=== PATIENT | female | born 1975 | race Caucasian/White ===

== ENCOUNTER 2025-03-05 12:46 | Emergency (ER) | payer SELFPAY ==
[2025-03-05 12:48] VITALS: BP 147/65; PULSE 65; RESP 14; TEMP 36.2; O2SAT 100; BMI 18.1
[2025-03-05 13:31] LABS: Hematocrit 41.1 % (37-47); Hemoglobin 13.1 g/dL (12.0-15.0); Immature Granulocytes Count 0.020 X10^3/uL (0.0-0.0); Mean Corp Hgb Conc 31.9 g/dL (32-36); Mean Corpuscular Volume 90.7 fL (81-99); Mean Platelet Vol. 9.9 fl (6.2-12.0); NRBC Flagged by Analyzer 0 % (0-5); Platelet Count 371 K/mm3 (150-450); RBC Distribution Width CV 13.1 % (11.6-14.6); RBC Distribution Width SD 43.5 fl (35.1-43.9); Red Blood Count 4.53 M/mm3 (4.2-5.4); White Blood Count 7.9 K/mm3 (4.4-11.0)
[2025-03-05 13:39] LABS: Barbiturate Urine NEGATIVE (< 200 ng/mL); Benzodiazepine Urine NEGATIVE (< 200 ng/mL); PCP Urine NEGATIVE (< 25 ng/mL); THC Urine NEGATIVE (< 50 ng/mL)
[2025-03-05 14:00] LABS: Anion Gap 11 (5-15); BUN 13 mg/dL (4-19); BUN/Creat Ratio 26.3 RATIO (10-20); Calcium,Total 9.4 mg/dL (7.6-11.0); Carbon Dioxide 25.3 mmol/L (21.0-32.0); Chloride 102 mmol/L (98-108); Estimated Creatinine Clearance 111.91 ml/min (50-250); Glucose 103 mg/dL (70-99); Potassium 4.3 mmol/L (3.3-5.1)
[2025-03-05 14:05] LABS: Alcohol, Blood (Medical)-Serum < 10.1 mg/dL (<=10.0)
[2025-03-05 14:08] LABS: Internal QC Validated? YES +Cl - CLEAR BKGD; Pregnancy, Serum, hCG Quali. NEGATIVE Negative; Record Kit Lot#, Serum Preg. 980607
[2025-03-05 14:40] LABS: Mucous, Urine 0 SEEN /hpf (<or=2+); Red Blood Cells-Urine 0 SEEN /hpf (0-5)
[2025-03-05 14:51] LABS: Color, Urine Yellow (Yellow); Glucose, Dipstick Normal (Normal); Ketone-Dipstick Negative (Negative); Leukocyte Esterase-Dipstick 500 /ul (Negative); Nitrite-Dipstick Negative (Negative); Occult Blood-Urine 10 /ul (Negative); Protein-Dipstick Negative (Negative); Specific Gravity, Urine 1.010 (1.002-1.030); Urine Bilirubin Dipstick Negative (Negative)
[2025-03-05 14:52] LABS: Squamous Epithelial Cells - UA 10-25 SEEN /hpf (5-10)
--- NOTE | 2025-03-05 15:35 | EDS_ITS ---
HPI HPI - Psych History of Present Illness Chief Complaint: Mental Health Informant: patient and PCP Narrative Narrative: 14-year-old female is brought to the emergency room. Patient tells me that 5 days ago she came to the area to visit family from [place]. She states that she has been feeling lethargic and feels that everything is very hazy here in [place]. She drink the tap water which she is not supposed to drink because she does not like the taste of it. It is unclear why she told me that information. Apparently she is supposed to be on Lamictal for personal reasons. She has not been on that. She states that she with her family went to the [facility] to get started on her medications. She was then brought to the emergency department under a pink slip. The pink slip states Sister brings client into office reports confused off of medications for months. Decline in function unable to properly use utensils or go to bathroom correctly reports history of schizoaffective-bipolar type and off antipsychotic over 6 months. She denies suicidal homicidal ideation but sister reports threats to kill people that took her children. Will decline in mental and physical health need evaluated and higher level of care Patient states she is here just to give a urine specimen then was to go back and get started on her medications. PFSH PFS Medical History Sarcoma of bone Bipolar depression Depression Medical History no medical history Allergy/AdvReac Type Severity Reaction Status Date / Time No Known Allergies Allergy Verified 03/05/25 12:47 Family History no significant family his Surgical History H/O thumb surgery Surgical History no surgical history Social History Smoking Status: Never smoker ROS ROS ED ROS Narrative Generalized fatigue Constitutional Constitutional ED: Denies chills or weight loss Eyes Eyes: Denies change in vision or diplopia ENT ENT ED: Denies ear pain, rhinorrhea or sore throat Cardiovascular Cardiovascular: Denies chest pain, orthopnea, palpitations or racing heartbeat Respiratory/Chest Respiratory/Chest: Denies cough, dyspnea or orthopnea Gastrointestinal Gastrointestinal: Denies abdominal pain, diarrhea, nausea or vomiting Genitourinary Genitourinary ED: Denies dysuria, hematuria or urinary frequency Musculoskeletal Musculoskeletal: Denies arthralgias or myalgias Integumentary Denies abscess or rash Neurologic Neurologic: Denies headache(s) or weakness Psychiatric Psychiatric: Denies anxiety, depression, suicidal ideation or suicidal thoughts Endocrine Endocrinology: Denies polydipsia, polyphagia or polyuria Allergic/Immunologic Allergic/Immunologic ED: Denies mouth swelling, tongue swelling or urticaria EXAM Physical Exam Const Vital Signs: 03/05/25 12:48 Temperature 97.2 F L Temperature Source Temporal Pulse Rate 65 Respiratory Rate 14 Blood Pressure 147/65 H Blood Pressure Mean 92 Pulse Ox 100 Positive well nourished and well developed General Appearance ED: well developed and NAD HEENT Reports normocephalic, head/scalp atraumatic and moist mucous membranes Eyes PERRL and EOMs intact bilaterally Neck no lymphadenopathy, supple and no JVD Resp normal respiratory effort and clear to auscultation bilaterally Cardio regular rate, regular rhythm and no murmurs GI normal to inspection, nondistended, normoactive bowel sounds and non-tender Palpation: soft Back/Spine no CVA tenderness and normal ROM Extremity normal to inspection General Extremety ED: Negative for edema General Extremity: Negative for edema Neuro oriented x3 and CN's II-XII intact bilaterally Sensorium / Orientation: alert Motor Exam: strength 5/5 throughout Psych mental status grossly normal Appearance: grossly normal Attitude: withdrawn, evasive and guarded Speech: slow Mood & Affect: Negative for depressed or tearful Thought Process: flight of ideas Skin no rashes or lesions noted and no wounds MDM MDM MDM Narrative Medical decision making narrative: Differential diagnosis includes schizoaffective disorder bipolar disorder UTI hypothyroidism dehydration Psychiatric screening labs were obtained through nursing protocol and were reviewed. I added on a TSH as well as a formal urine. All of these are not demonstrating an obvious cause to the patient's lethargy. Family dropped the patient off I been unable to speak with them yet. Then asked crisis to come and speak with the patient as she has have a pink slip. At the time of my examination however she is not suicidal or homicidal. History & Record Review Discussion w/independent historian: Patient and Other (Sharpes slip from Clary Roberson) Lab Data Attestation: I reviewed the patient's lab results. Labs: Laboratory Results - last 24 hr 03/05/25 03/05/25 03/05/25 13:00 13:25 14:30 WBC 7.9 RBC 4.53 Hgb 13.1 Hct 41.1 MCV 90.7 MCH 28.9 MCHC 31.9 L RDW Std Deviation 43.5 RDW Coeff of Ana 13.1 Plt Count 371 MPV 9.9 Immature Gran % (Auto) 0.300 Neut % (Auto) 67.0 Lymph % (Auto) 22.2 [place] % (Auto) 9.0 Eos % (Auto) 1.0 Baso % (Auto) 0.5 Absolute Neuts (auto) 5.3 Absolute Lymphs (auto) 1.75 Nucleated RBC % 0 Sodium 138 Potassium 4.3 Chloride 102 Carbon Dioxide 25.3 Anion Gap 11 BUN 13 Creatinine 0.50 L Estim Creat Clear Calc 111.91 Est GFR (MDRD) Non-Af 114 BUN/Creatinine Ratio 26.3 H Glucose 103 H Calcium 9.4 TSH 2.380 Serum , Qual NEGATIVE Urine Color Yellow Urine Clarity Clear Urine pH 7.0 Ur Specific Hope 1.010 Urine Protein Negative Urine Glucose (UA) Normal Urine Ketones Negative Urine Occult Blood 10 H Urine Nitrite Negative Urine Bilirubin Negative Urine Urobilinogen Normal Ur Leukocyte Esterase 500 H Urine RBC 0 SEEN Urine WBC 10-25 SEEN Ur Squamous Epith Cells 10-25 SEEN Urine Bacteria 0 SEEN Urine Mucus 0 SEEN Urine Opiates Screen NEGATIVE U Buprenorphine Qual NEGATIVE Ur Oxycodone Screen NEGATIVE Urine Methadone Screen NEGATIVE Urine Fentanyl Screen NEGATIVE Ur Barbiturates Screen NEGATIVE Ur Phencyclidine Scrn NEGATIVE Ur Amphetamines Screen NEGATIVE U Benzodiazepines Scrn NEGATIVE Urine Cocaine Screen NEGATIVE U Cannabinoids Screen NEGATIVE Ethyl Alcohol < 10.1 Management Discussion w/another healthcare provider: Behavioral health Discharge Plan Triage Chief Complaint: Mental Health ED Provider: Arvind De La Fuente Dx/Rx/DC Orders Clinical Impression: Lethargic, Bipolar disorder Primary Care Provider: Care Physician,No Primary Referrals: Care Physician,No Primary [Primary Care Provider, Medical] Print Language: Romanian
[2025-03-05 22:40] VITALS: BP 124/74; PULSE 78; RESP 16; O2SAT 99
[2025-03-06 06:00] VITALS: BP 121/83; PULSE 69; RESP 16; O2SAT 100
--- NOTE | 2025-03-06 12:01 | EKG12_ITS ---
Test Reason : Blood Pressure : */* mmHG Vent. Rate : 80 BPM Atrial Rate : 80 BPM P-R Int : 172 ms QRS Dur : 88 ms QT Int : 374 ms P-R-T Axes : 69 39 62 degrees QTcB Int : 431 ms Normal sinus rhythm with sinus arrhythmia Normal ECG Confirmed by GERMANIA IBANEZ, REAL ([id number]), editor newspaper ANGELICA ROSE ([id number]) on 03/08/2025 6:43:58 AM Referred By: Confirmed By: REAL SOLO MD
--- NOTE | 2025-03-06 12:10 | CM.ED ---
Social Work Date of referral: 06/06/24 Reason for referral: Patient requesting to speak with a secondary social studies teacher as [facility] is requiring an EKG which patient has been refusing. Referred by: ED nursing/patient request Welding Equipment Sales Representative met with patient and was able to successfully answer all of patient's questions to her satisfaction. Patient then provided verbal consent to the EKG. Welding Equipment Sales Representative let ED nurse/staff know. Patient denied any other needs/concerns at this time. Marlena Verdin, ELEPHANT TAMER, PLACEMENT OFFICER
[2025-03-06 14:00] VITALS: BP 142/71; PULSE 89; RESP 16; O2SAT 98
[2025-03-06] MEDS: Smz/Tmp Ds Tablet 1 TABLET PO (18:07)
--- NOTE | 2025-03-06 18:13 | ED.RN ---
lab called and needs more urine for culture
[2025-03-06 22:00] VITALS: BP 138/78; PULSE 78; RESP 16; TEMP 36.7; O2SAT 100
[2025-03-07 06:00] VITALS: BP 144/93; PULSE 66; RESP 14; O2SAT 100
--- NOTE | 2025-03-07 11:44 | CM.ED ---
Social Work Pot Feeder received a call from patient's sister, Yris Alberts who shared the following history: Patient has 3 children, (Mrs. Alberts guessed at the ages) 15 year-old daughter Mercedes Pineda, 14 year-old son Yemi Pineda and 10 year-old son Milo Pineda, all who were all removed from the care of patient in [place] by [facility] within this last year. Reason is unknown and it is also unknown if the children are in foster care or placed with their father, Avrind, however [facility] was said to be still involved. Children were removed close to the [place] or [place] area of [place]. Mrs. Alberts stated patient went homeless trying to walk the streets looking for her children and Mrs. Alberts's son was able to locate patient after a missing person's report was filed and went to [place] and brought patient back to [place]. Mrs. Alberts stated patient doesn't shower, doesn't use utensils and isn't potty trained/won't use the toilet. Mrs. Aaron stated she splits her time between [facility] and her home here with her , Wyatt Alvarez as they are trying to sell their home in [place] so Mrs. Alberts can be in [place] full-time. Mrs. Alberts stated she is no longer equipped to take care of patient/give patient what patient needs and doesn't feel as though she is able to keep patient safe and needs help on where patient can go. Mrs. Alberts stated she was told by patient's ED nurse that patient is being placed. Pot Feeder encouraged Mrs. Alberts to call back for an update on 03/08, at which point, more may be known. Pot Feeder also provided resources and encouraged Mrs. Alberts to coordinate discharge planning with receiving facility which Mrs. Alberts agreed to do. No other questions/concerns noted. Marlena Verdin, MANAGER DOCUMENTATION, TAX ASSOCIATE ATTORNEY
[2025-03-07 14:00] VITALS: BP 123/65; PULSE 89; RESP 16; O2SAT 100
[2025-03-07 22:00] VITALS: BP 131/76; PULSE 79; RESP 14; O2SAT 96
[2025-03-08 06:00] VITALS: BP 149/81; PULSE 74; RESP 18; O2SAT 98
--- NOTE | 2025-03-08 07:34 | PCA ---
[facility] called @ 727 and asked if we still needed placement for her. i said yes. they will call back in a bit with a bed assignment as soon as some discharges leave.
--- NOTE | 2025-03-08 09:10 | PCA ---
[facility] CALLED WITH A BED @ 900 SHE IS GOING TO [facility] [facility] ACCEPTED ETA @ 395
[2025-03-08 09:42] VITALS: BP 142/66; PULSE 64; RESP 18; TEMP 36.6; O2SAT 99
== END 2025-03-08 10:29 ==
PROVIDERS: Emergency Provider Emergency Medicine; Visit Provider Emergency Medicine
DX: F31.9 Bipolar disorder, unspecified (principal); R53.83 Other fatigue
CPT/HCPCS: 80048; 80307; 81001; 82077; 84443; 84703; 85025; 87086; 87088; 93005; 99285; A4216